=== PATIENT | male | born 1965 | race Hispanic/Latino ===

== ENCOUNTER 2018-07-02 17:00 | Emergency (ER) | payer OTHER ==
[2018-07-02 17:34] LABS: BASOPHILS % (AUTO) 1.5 % (0.0-5.0); HEMATOCRIT 46.7 % (42-54); LYMPHOCYTES % (AUTO) 22.8 % (21.0-51.0); MEAN CORPUSCULAR HEMOGLOBIN 27.6 pg (27.0-33.0); MEAN CORPUSCULAR HGB CONC 33.7 g/dL (32.0-36.0); MEAN CORPUSCULAR VOLUME 81.9 fL (79-99); MONOCYTES % (AUTO) 11.5 % (3.0-13.0); NEUTROPHILS % (AUTO) 61.2 % (40.0-77.0); NUCLEATED RED BLOOD CELLS 0.1 % (0.0-0.19); PLATELET COUNT (AUTO) 283 K/uL (130-400); RED CELL DISTRIBUTION WIDTH 13.4 % (11.0-15.5); WHITE BLOOD COUNT (AUTO) 11.6 K/uL (4.8-10.8)
[2018-07-02 17:44] LABS: POTASSIUM 3.9 mmol/L (3.5-5.1)
[2018-07-02 17:49] LABS: ALBUMIN 3.7 g/dL (3.5-5.0); BILIRUBIN,TOTAL 0.2 mg/dL (0.2-1.0); TOTAL PROTEIN, SERUM 6.9 g/dL (6.0-8.3)
[2018-07-02] MEDS ORDERED: METOPROLOL TARTRATE 1 MG/ML 5ML VIAL IV ONE (17:49)
[2018-07-02] MEDS ORDERED: METOPROLOL TARTRATE 25 MG TAB ONE (17:50)
[2018-07-02 17:57] LABS: BILIRUBIN,URINE Negative (NEGATIVE); COLOR,URINE Yellow (YELLOW); GLUCOSE, URINE (UA) Negative (NEGATIVE); KETONES,URINE Negative (NEGATIVE); LEUKOCYTE ESTERASE ,URINE Negative (NEGATIVE); NITRATE,URINE Negative (NEGATIVE); OCCULT BLOOD,URINE Negative (NEGATIVE); PROTEIN,URINE Negative (NEGATIVE); UROBILINOGEN,URINE 0.2 mg/dL (0.2-1.0)
[2018-07-02 17:58] LABS: APPEARANCE,URINE CLEAR (CLEAR)
== END 2018-07-02 18:42 | disposition home or self-care (01) ==
LOC: EDH 17:00
DX: I10 Essential (primary) hypertension (principal); R53.83 Other fatigue; Z87.891 Personal history of nicotine dependence; Z79.899 Other long term (current) drug therapy
CPT/HCPCS: 36415; 80053; 81003; 85025; 87804; 93005; J3490

== ENCOUNTER 2025-01-15 23:42 | Inpatient (IN) | payer BC, OTHER ==
[~2025-01-15] VITALS: Ht 165.1 cm; Wt 98.1 kg
--- NOTE | 2025-01-15 23:47 | NUR ---
UA CUP PROVIDED
--- NOTE | 2025-01-15 23:49 | NUR ---
UA COLLECTED AND SENT
--- NOTE | 2025-01-15 23:49 | ERN ---
ED Note History of Present Illness Stated Complaint: RT FLANK PAIN Chief Complaint: Flank Pain Time Seen by MD: 23:43 Time Seen by Midlevel: 23:43 Dictation: Mr. Castellano 59-year-old gentleman with history of hypertension, umbilical hernia, obesity, and kidney stones who presented to the emergency department this evening for evaluation of flank pain. He said he developed right flank pain with nausea and hematuria early this morning. He states pain initially at an 8/10 but he took it dose of Advil at 5:30 p.m. and now he has decreased to 5/10. He denies fever, chills, shortness of breath, cough, chest pain, palpitat ions, edema, abdominal pain, vomiting, hematemesis, constipation, diarrhea, melena, hematochezia,headache, dizziness, or focal weakness/paresthesia. He has a history of kidney stones; last episode two years ago. Urologist: None Allergies: Coded Allergies: No Known Drug Allergies (Verified Allergy, Unknown, 12/09/14) Emergency Care OPERA SINGER: None Past Medical History Surgical History: None PSYCH History: no pertinent psych hx Social History: Negative, Lives with family RN Note Reviewed/Agreed w/PFSH: Yes Review of System Dictation REVIEW OF SYSTEMS: CONSTITUTIONAL: Patient denies fevers, chills, sweats and weight changes. EYES: Patient denies any visual symptoms. EARS, NOSE, AND THROAT: No difficulties with hearing. No symptoms of rhinitis or sore throat. CARDIOVASCULAR: Patient denies chest pains, palpitations, orthopnea and parox ysmal nocturnal dyspnea. RESPIRATORY: No dyspnea on exertion, no wheezing or cough. GI: No nausea, vomiting, diarrhea, constipation, abdominal pain, hematochezia or melena. : No urinary hesitancy or dribbling. No nocturia.No abnormal urethral discharge. Reports history of kidney stones; last episode two years ago. Reports right flank pain 8/10 (5/10 following dose Advil) and frequent urination. Reports pink urine. Reports umbilical hernia; reducible. Nonpainful. MUSCULOSKELETAL: No myalgias or arthralgias. NEUROLOGIC: No chronic headaches, no seizures. Patient denies numbness, tingling or weakness. PSYCHIATRIC: Patient denies problems with mood disturbance. No problems with anxiety. ENDOCRINE: No excessive urination or excessive thirst. DERMATOLOGIC: Patient denies any rashes or skin changes. Initial Vital Sign VS Vital Signs Date Time Temp Pulse Resp B/P (MAP) Pulse Ox O2 Delivery O2 Flow Rate FiO2 01/15/25 23:43 97.9 69 20 143/83 97 Room Air 01/16/25 02:10 0 21 Physical Exam Dictation Vital signs: Reviewed. Afebrile Constitutional: No acute distress. Uncomfortable. Head/Face: Normocephalic, atraumatic. Eyes: Periorbital areas with no swelling, redness, or edema. Lids and lashes are normal. Conjunctival injection is absent. Sclera anicteric. Pupils equal, round, reactive to light. ENT: Pinnas intact and no signs of trauma or erythema. Ear canals clear and no discharge. TMs no erythema. No nasal discharge or bleeding noted. Oropharynx with no exudate, redness, swelling, masses, exudates, or evidence of obstruction. Uvula midline. Mucous membranes moist. Neck: Trachea midline, no masses palpated, and no cervical lymphadenopathy. No swelling. Supple, full range of motion. Chest/Axilla: No tenderness, no crepitus, no paradoxical movement, no retractions. Cardiovascular: Regular rate, regular rhythm, no murmur, no gallops. Symmetric pulses. No peripheral edema. Respiratory: Respirations even and unlabored. Lung sounds clear; no wheezes, rales or rhonchi. Room air SpO2 99% Gastrointestinal: Obese. No distention is appreciated. Bowel sounds are normal. No mass or organomegaly . There is no tenderness. No rebound. No rigidity. No voluntary or involuntary guarding. No Hinton's sign. Noted umbilical hernia; easily reducible. Nonpainful. : + CVA tenderness on right. Neurological: Normal speech, gross motor function intact, gross sensory function intact. No focal weakness/Paresthesia. Musculoskeletal/Extremities: All extremities have full range of motion, no pain or tenderness on palpation. Symmetric pulses. Integumentary: Intact. Skin is normal color, warm and dry. Cap refill less than 3 seconds. Results (Laboratory/Radiology) Laboratory/Radiology Laboratory Tests Test 01/15/25 00:00 01/16/25 00:08 Urine Color LIGHT-YELLOW (YELLOW) Urine Appearance CLEAR (CLEAR) Urine pH 5.0 (5.0-8.0) Urine Specific [place] 1.017 (1.001-1.031) Urine Protein 10 mg/dL (NEGATIVE) H Urine Glucose (UA) NEGATIVE mg/dL (NEGATIVE) Urine Ketones NEGATIVE mg/dL (NEGATIVE) Urine Occult Blood LARGE (NEGATIVE) H Urine Nitrate NEGATIVE (NEGATIVE) Urine Bilirubin NEGATIVE mg/dL (NEGATIVE) Urine Urobilinogen 0.2 mg/dL (0.2-1.0) Urine Leukocyte Esterase NEGATIVE [place]/uL Urine RBC TNTC /HPF (0-1) H Urine WBC 2-5 /HPF (0-1) H Urine Squamous Epithelial Cells RARE /HPF (0-2) Urine Bacteria None /HPF (None Seen) White Blood Count 18.8 K/uL (4.8-10.8) H Red Blood Count 5.52 MIL/uL (4.50-6.20) Hemoglobin 15.2 g/dL (14.0-18.0) Hematocrit 46.0 % (42-54) Mean Corpuscular Volume 83.3 fL (79-99) Mean Corpuscular Hemoglobin 27.5 pg (27.0-33.0) Mean Corpuscular Hemoglobin Concent 33.0 g/dL (32.0-36.0) Red Cell Distribution Width 13.5 % (11.0-15.5) Platelet Count 302 K/uL (130-400) Mean Platelet Volume 9.7 fL (7.5-10.5) Immature Granulocyte % (Auto) 0.5 % (0-1) Neutrophils (%) (Auto) 79.8 % (40.0-77.0) H Lymphocytes (%) (Auto) 9.2 % (21.0-51.0) L Monocytes (%) (Auto) 9.2 % (3.0-13.0) Eosinophils (%) (Auto) 0.9 % (0.0-8.0) Basophils (%) (Auto) 0.4 % (0.0-5.0) Neutrophils # (Auto) 15.0 K/uL (1.8-7.7) H Lymphocytes # (Auto) 1.7 K/uL (1.0-4.8) Monocytes # (Auto) 1.7 K/uL (0.1-1.0) H Eosinophils # (Auto) 0.17 K/uL (0.00-0.70) Basophils # (Auto) 0.07 K/uL (0.00-0.20) Absolute Immature Granulocyte (auto 0.09 K/uL (0-1) Nucleated Red Blood Cells 0.0 % (0.0-0.19) White Cell Morphology Comment See comments Sodium Level 137 mmol/L (136-145) Potassium Level 4.1 mmol/L (3.5-5.1) Chloride Level 101 mmol/L (101-111) Carbon Dioxide Level 24 mmol/L (21-32) Blood Urea Nitrogen 39 mg/dL (7-18) H Creatinine 2.1 mg/dL (0.5-1.3) H Glomerular Filtration Rate Calc 36 mL/min (>90) Random Glucose 102 mg/dL (70-105) Total Calcium 8.6 mg/dL (8.5-10.1) Total Bilirubin 0.8 mg/dL (0.2-1.0) Direct Bilirubin 0.1 mg/dL (0.0-0.3) Aspartate Amino Transf (AST/SGOT) 35 U/L (10-37) Alanine Aminotransferase (ALT/SGPT) 37 U/L (12-78) Alkaline Phosphatase 86 U/L (50-136) Total Protein 6.8 g/dL (6.0-8.3) Albumin 3.6 g/dL (3.5-5.0) Labs Reviewed?: Yes CT Scan Comment: v PATIENT: MARY CASTELLANO MR#: [id number] : 1965 SEX: M AGE: 59 LOCATION: [facility] ORDER [id number] STATUS: REG REPORT#: [id number] SERVICE [id number] REASON: right flank pain, hematuria, hx kidney stones ORDERING PHYSICIAN: CARLOS HILLIARD NP PROCEDURE: ABD PEL WO - CT ABDOMEN/PELVIS W/O CONTRAST EXAM: CT Abdomen and Pelvis without IV contrast. CLINICAL HISTORY: Pain in the right flank. Hematuria. TECHNIQUE: Thin collimated axial CT images of the abdomen and pelvis were obtained, with sagittal and coronal reformatted images also submitted. A CT scan is done according to ALARA (As Low As Reasonably Achievable). CONTRAST: None. COMPARISON: CT scan of the abdomen and pelvis. Dated 12/09/2014. FINDINGS: Unremarkable visualized lung parenchyma. There is no focal abnormality appreciated within the gallbladder, pancreas, spleen, or adrenals. Fatty liver. A 10 mm focus of increased density in the left lobe of the liver could suggest a hemangioma with focal fat sparing. This is a new finding. 3 mm calculus in the interpolar region and lower pole of the right kidney. Moderate right hydronephrosis. 3 mm calculus in the right upper and lower ureter. Punctate calculus in the interpolar region of the left kidney. The previously visualized cyst in the lower pole of the left kidney has reduced in size, now measuring 10 mm. There is no obvious bowel wall thickening. Bowel loops are normal in caliber without evidence of obstruction or ileus. Scattered colonic diverticulosis. Mild constipation. Medium-sized umbilical hernia containing omental fat through a defect measuring 2 cm. The appendix is unremarkable. There is no abnormality within the urinary bladder. Unremarkable reproductive organs. No lymphadenopathy. No free fluid. No pneumoperitoneum. No gross abnormality in the abdominal vessels. There is no acute osseous abnormality. Redemonstrated is grade 1 anterolisthesis of L5 over S1 by 5 mm with lysis of bilateral L5 pars interarticularis with further mild reduction in the L5-S1 intervertebral disc height. IMPRESSIONS: Obstructive calculus in the right upper and lower ureter, causing moderate right hydronephrosis. A new finding. Nonobstructive bilateral renal calculi. A new finding. Medium-sized umbilical hernia containing fat, a new finding. Other chronic findings are described. /[place] DICTATED BY: CARLOS JONES Jr., MD DATE: 01/16/25251 ELECTRONICALLY SIGNED BY: CARLOS JONES Jr., MD DATE: 01/16/25251 ED Course ED Course Orders Procedure Category Date Status Time Urinalysis Profile LAB 01/15/25 Complete 23:49 Cbc With Differential LAB 01/15/25 Complete 23:49 Basic Metabolic Panel LAB 01/15/25 Complete 23:49 Hepatic Function Panel LAB 01/15/25 Complete 23:49 Ondansetron Odt 4mg PHA 01/16/25 Complete Tab (Zofran 4mg Odt) 00:00 Hydrocodone/Apap PHA 01/16/25 Complete 5/325 (Milton 5/325mg) 00:00 Ct Abdomen/Pelvis W/O CT 01/15/25 Resulted Contrast 23:49 0.9%Nacl 1000ml (Ns PHA 01/16/25 Complete 1000ml) 01:00 Ceftriaxone 1g Vial PHA 01/16/25 Complete (Rocephine 1g Inj) 01:00 Current Medications Medications (Trade) Dose Ordered Sig/Trini Route PRN Reason Start Time Stop Time Status Last Admin Dose Admin Acetaminophen/ Hydrocodone Bitart (NORco 5/325MG) 1 tab ONCE ONCE PO 01/16/25 00:00 01/16/25 00:01 DC 01/16/25 01:31 Ceftriaxone Sodium (ROCEphine 1G INJ) 1 gm ONCE ONCE IVPB 01/16/25 01:00 01/16/25 01:01 DC 01/16/25 02:00 Ondansetron HCl (zoFRAN 4MG ODT) 4 mg ONCE ONCE SL 01/16/25 00:00 01/16/25 00:01 DC 01/16/25 01:30 Sodium Chloride 1,000 ml @ 0 mls/hr ONCE ONCE IV 01/16/25 01:00 01/16/25 01:01 DC 01/16/25 02:00 Vital Signs Date Time Temp Pulse Resp B/P (MAP) Pulse Ox O2 Delivery O2 Flow Rate FiO2 01/16/25 02:10 98.2 64 18 164/77 Room Air* 0 21 01/15/25 23:43 97.9 69 20 143/83 97 Room Air Presents with right flank pain/positive right CVA tenderness with nausea. No signs are stable afebrile; with room air SpO2 99%. Normotensive. Laboratory findings as noted below. WBCs 18.8, BUN/CR 39/2.1 and UA+ protein, blood and you WBCs 2-5; culture pending. CT scan of the abdomen and pelvis revealed obstructive calculus in the right upper and lower ureter causing moderate right hydronephrosis as well as nonobstructive bilateral renal calculi. There was a medium size umbilical hernia containing fat. While in the ED he received doses Zofran, Milton, Rocephin, and NS 1000 mL IV as bolus. Findings were discussed with RODNEY Muniz who accepts patient for admission to hospitalist group. Medical Decision Making MDM MDM: Differential diagnosis: Kidney stone, hydronephrosis, UTI, electrolyte derangement, SUJIT Rationale: Tests considered and ordered secondary to shared decision making include: labs, ECG and radiology Previous outside records reviewed: Old ER visits. Risk of complication and/or morbidity or mortality of patient management: None Medications-Per medication reconciliation Need for hospitalization: Patient does meet criteria for hospitalization. Need for emergency major/minor surgery: No There are no social concerns with this patient. Prescription drug management Prescriptions will include symptomatic care Patient's prior external medical records from other ER visits were reviewed by me as indicated. Prior testing and results from previous visits were reviewed. Prior tests were taken into account with medical decision making and resource utilization, independent historian/historians were used to obtain complete medical history. I independently interpreted the test that were performed, results were reviewed by me and considered findings on radiology if ordered. Medical management and examination interpretation discussions were had by me with other qualified healthcare professionals as indicated for the patient's care. DX & DISP Disposition: Inpatient Departure Impression: Primary Impression: Leukocytosis Additional Impressions: Hydronephrosis, right, Kidney stone, Dehydration, Umbilical hernia Condition: Stable Assign Patient to: Dr. Anuj Tran Referrals: VIRGINIA CHAWLA (PCP) CARLOS HILLIARD NP Jan 15, 2025 23:49
[2025-01-16 00:09] LABS: APPEARANCE,URINE CLEAR (CLEAR); GLUCOSE, URINE (UA) NEGATIVE (NEGATIVE); LEUKOCYTE ESTERASE ,URINE NEGATIVE Leu/uL (NEGATIVE); NITRATE,URINE NEGATIVE (NEGATIVE); OCCULT BLOOD,URINE LARGE (NEGATIVE)
[2025-01-16 00:10] LABS: ADD UA MICROSCOPIC YES
[2025-01-16 00:13] LABS: SQUAMOUS EPITHELIAL CELL,UR RARE /HPF (0-2)
--- NOTE | 2025-01-16 00:30 | NUR ---
WITH RADIOLOGY AT THIS TIME
[2025-01-16 00:33] LABS: IMMATURE GRANULOCYTE ABSOLUTE 0.09 K/uL (0-1); NUCLEATED RED BLOOD CELLS 0.0 % (0.0-0.19); PLATELET COUNT (AUTO) 302 K/uL (130-400); RED BLOOD CELL COUNT(AUTO) 5.52 MIL/uL (4.50-6.20); RED CELL DISTRIBUTION WIDTH 13.5 % (11.0-15.5); WHITE BLOOD COUNT (AUTO) 18.8 K/uL (4.8-10.8)
--- NOTE | 2025-01-16 00:38 | NUR ---
RETURNED FROM RADIOLOGY
[2025-01-16 00:43] LABS: CREATININE 2.1 mg/dL (0.5-1.3); GLOMERULAR FILTR. RATE CALC 36.0 mL/min (>90); GLUCOSE,RANDOM 102.0 mg/dL (70-105); SODIUM SERUM 137.0 mmol/L (136-145); UREA NITROGEN, BLOOD 39.0 mg/dL (7-18)
[2025-01-16 00:48] LABS: ASPARTATE AMINOTRANSFERASE 35.0 U/L (10-37); TOTAL PROTEIN, SERUM 6.8 g/dL (6.0-8.3)
[2025-01-16] MEDS: HYDROcodone/APAP 5/325 1 TAB TABLET PO ONE (01:31)
--- NOTE | 2025-01-16 01:53 | HMCIMG ---
EXAM: CT Abdomen and Pelvis without IV contrast. CLINICAL HISTORY: Pain in the right flank. Hematuria. TECHNIQUE: Thin collimated axial CT images of the abdomen and pelvis were obtained, with sagittal and coronal reformatted images also submitted. A CT scan is done according to ALARA (As Low As Reasonably Achievable). CONTRAST: None. COMPARISON: CT scan of the abdomen and pelvis. Dated 12/09/2014. FINDINGS: Unremarkable visualized lung parenchyma. There is no focal abnormality appreciated within the gallbladder, pancreas, spleen, or adrenals. Fatty liver. A 10 mm focus of increased density in the left lobe of the liver could suggest a hemangioma with focal fat sparing. This is a new finding. 3 mm calculus in the interpolar region and lower pole of the right kidney. Moderate right hydronephrosis. 3 mm calculus in the right upper and lower ureter. Punctate calculus in the interpolar region of the left kidney. The previously visualized cyst in the lower pole of the left kidney has reduced in size, now measuring 10 mm. There is no obvious bowel wall thickening. Bowel loops are normal in caliber without evidence of obstruction or ileus. Scattered colonic diverticulosis. Mild constipation. Medium-sized umbilical hernia containing omental fat through a defect measuring 2 cm. The appendix is unremarkable. There is no abnormality within the urinary bladder. Unremarkable reproductive organs. No lymphadenopathy. No free fluid. No pneumoperitoneum. No gross abnormality in the abdominal vessels. There is no acute osseous abnormality. Redemonstrated is grade 1 anterolisthesis of L5 over S1 by 5 mm with lysis of bilateral L5 pars interarticularis with further mild reduction in the L5-S1 intervertebral disc height. IMPRESSIONS: Obstructive calculus in the right upper and lower ureter, causing moderate right hydronephrosis. A new finding. Nonobstructive bilateral renal calculi. A new finding. Medium-sized umbilical hernia containing fat, a new finding. Other chronic findings are described. /[place]
[2025-01-16] MEDS: 0.9%NACL 1000ML 1,000 ML IV ONE (02:00)
--- NOTE | 2025-01-16 03:41 | HP ---
[facility] HISTORY AND PHYSICAL Date of Service: Jan 16, 2025 Time of Service: 03:41 PCP: Marlo Guzman HISTORY OF PRESENT ILLNESS: This is a 59 year old Vietnamese-speaking male with past medical history of hypertension and kidney stone who presented to the ED for complaints of right flank pain which started yesterday associated with nausea and hematuria.Patient reports having similar problem before.Upon ER arrival vital signs was 97.9, heart rate 69, blood pressure 143/83 saturation 97% on room air. Seen and examined patient in the ER awake alert and coherent, patient appears comfortable. Patient reports pain has subsided. Patient denies fever, abdominal pain, vomiting, chest pain, palpitation no shortness a breath. Labs: WBC 18 with negative left shift of neutrophils 79, hemoglobin 15, hematocrit 46, platelet count 302. BUN 39, creatinine 2.1 GFR 36 the rest of the chemistry result is normal. Urinalysis is significant for protein, large hematuria, RBC too numerous to count, WBC 2-5. A CT abdomen and pelvis without contrast was done and result revealed obstructive calculus in the right upper and lower ureter causing moderate right hydronephrosis. A new findings. Nonobstructive bilateral renal calculi a new finding. Medium sized umbilical hernia containing fat, a new finding. While in the ER patient received Zofran 4 mg IV, hydrocodone one tab p.o. 1 L NS bolus and Rocephin 1 g IV. We will admit patient for further medical management. REVIEW OF SYSTEMS CONSTITUTIONAL: Denies fevers, chills, or night sweats. No unintentional weight loss reported. NEUROLOGICAL: Denies headache, amaurosis fugax, motor weakness, sensory deficit, vertigo/spinning sensation, gait abnormalities, or tremors. ENT: No hearing loss, otalgia, otorrhea, rhinitis, rhinorrhea, hoarseness, or sore throat. CARDIOVASCULAR: Denies any exertional angina, dyspnea on exertion, orthopnea, paroxysmal nocturnal dyspnea, palpitations, life-threatening arrhythmias, claudication. PULMONARY: Denies any shortness of breath, cough, phlegm/sputum, hemoptysis, pleuritic chest pain. SLEEP: Denies morning headaches, daytime somnolence or napping. Denies difficulty falling asleep, staying asleep, waking from sleep. Denies knowledge of snoring. GASTROINTESTINAL: Positive nausea Denies any type of dysphagia to either liquids or solids. Denies vomiting, pyrosis, early satiety, abdominal pain, diarrhea, constipation, or changes in stool consistency or caliber. Denies coffee-ground emesis, hematemesis, hematochezia, or melanotic stools. GENITOURINARY: Complained of right flank pain Denies frequency, urgency, nocturia, hematuria or incontinence (Storage/Irritative symptoms.) Low urinary stream, straining to void, urinary intermittency or hesitancy, splitting of the voiding stream, terminal dribbling. ENDOCRINOLOGIC: Denies polyuria, polydipsia, polyphagia or heat/cold intolerances. HEMATOLOGIC: Denies thrombophilia/previous clots, or coagulopathy/bleeding disorders. ONCOLOGIC: Denies personal history of malignancy. DERMATOLOGIC: Denies rashes or pruritus. PSYCHIATRIC: Denies any suicidal or homicidal ideation. Denies hallucinations. PAST MEDICAL HISTORY: [ Hypertension and kidney stone ] PAST SURGICAL HISTORY: [ Patient denies] PAST SOCIAL HISTORY: [Patient lives with . Patient denies alcohol tobacco and recreational drug use ] FAMILY HISTORY: [ Noncontributory] Coded Allergies: No Known Drug Allergies (Verified Allergy, Unknown, 12/09/14) PHYSICAL EXAM GENERAL APPEARANCE: The patient is awake, alert, and oriented, in no acute cardiopulmonary distress. NEUROLOGICAL: Cranial nerves II-XII grossly intact. Motor is 5/5 in bilateral upper and lower extremities proximal to distal. No sensory deficits. HEENT: Face is symmetric. Pupils are equal and reactive. Extraocular movements are intact. NECK: Supple. No JVD. No thyromegaly. No submental, submandibular, pre- /postauricular, occipital or supraclavicular lymphadenopathy. CHEST: Normal chest expansion. No Telemetry. LUNGS: Absence of any rales, rhonchi or any wheezing. CARDIOVASCULAR: Regular. S1 and S2 normal. No appreciable rubs, murmurs or gallops. ABDOMEN: Soft, nontender, and nondistended. There is no rebound, voluntary guarding, or rigidity. : + CVAT Deferred. No Hay. EXTREMITIES: Non-edematous and not cyanotic. No clubbing. Good capillary refill. SKIN: No skin breakdown. Vital Sign (Last 24 Hours) 01/15/25 01/16/25 23:43 02:10 Temp 98.2 Pulse 64 Resp 18 B/P (MAP) 164/77 Pulse Ox 97 O2 Delivery Room Air* O2 Flow Rate 0 FiO2 21 LABS: Laboratory: Test 01/16/25 00:08 01/15/25 00:00 Range/Units White Blood Count 18.8 H 4.8-10.8 K/uL Red Blood Count 5.52 4.50-6.20 MIL/uL Hemoglobin 15.2 14.0-18.0 g/dL Hematocrit 46.0 42-54 % Mean Corpuscular Volume 83.3 79-99 fL Mean Corpuscular Hemoglobin 27.5 27.0-33.0 pg Mean Corpuscular Hemoglobin Concent 33.0 32.0-36.0 g/dL Red Cell Distribution Width 13.5 11.0-15.5 % Platelet Count 302 130-400 K/uL Mean Platelet Volume 9.7 7.5-10.5 fL Immature Granulocyte % (Auto) 0.5 0-1 % Neutrophils (%) (Auto) 79.8 H 40.0-77.0 % Lymphocytes (%) (Auto) 9.2 L 21.0-51.0 % Monocytes (%) (Auto) 9.2 3.0-13.0 % Eosinophils (%) (Auto) 0.9 0.0-8.0 % Basophils (%) (Auto) 0.4 0.0-5.0 % Neutrophils # (Auto) 15.0 H 1.8-7.7 K/uL Lymphocytes # (Auto) 1.7 1.0-4.8 K/uL Monocytes # (Auto) 1.7 H 0.1-1.0 K/uL Eosinophils # (Auto) 0.17 0.00-0.70 K/uL Basophils # (Auto) 0.07 0.00-0.20 K/uL Absolute Immature Granulocyte (auto 0.09 0-1 K/uL Nucleated Red Blood Cells 0.0 0.0-0.19 % White Cell Morphology Comment See comments Sodium Level 137 136-145 mmol/L Potassium Level 4.1 3.5-5.1 mmol/L Chloride Level 101 101-111 mmol/L Carbon Dioxide Level 24 21-32 mmol/L Blood Urea Nitrogen 39 H 7-18 mg/dL Creatinine 2.1 H 0.5-1.3 mg/dL Glomerular Filtration Rate Calc 36 >90 mL/min Random Glucose 102 70-105 mg/dL Total Calcium 8.6 8.5-10.1 mg/dL Total Bilirubin 0.8 0.2-1.0 mg/dL Direct Bilirubin 0.1 0.0-0.3 mg/dL Aspartate Amino Transf (AST/SGOT) 35 10-37 U/L Alanine Aminotransferase (ALT/SGPT) 37 12-78 U/L Alkaline Phosphatase 86 50-136 U/L Total Protein 6.8 6.0-8.3 g/dL Albumin 3.6 3.5-5.0 g/dL Urine Color LIGHT-YELLOW YELLOW Urine Appearance CLEAR CLEAR Urine pH 5.0 5.0-8.0 Urine Specific [place] 1.017 1.001-1.031 Urine Protein 10 H NEGATIVE mg/dL Urine Glucose (UA) NEGATIVE NEGATIVE mg/dL Urine Ketones NEGATIVE NEGATIVE mg/dL Urine Occult Blood LARGE H NEGATIVE Urine Nitrate NEGATIVE NEGATIVE Urine Bilirubin NEGATIVE NEGATIVE mg/dL Urine Urobilinogen 0.2 0.2-1.0 mg/dL Urine Leukocyte Esterase NEGATIVE NEGATIVE [place]/uL Urine RBC TNTC H 0-1 /HPF Urine WBC 2-5 H 0-1 /HPF Urine Squamous Epithelial Cells RARE 0-2 /HPF Urine Bacteria None None Seen /HPF DIAGNOSTICS / RADIOLOGY: [ ] ASSESSMENT: Right flank pain POA Right hydronephrosis per CT POA Right kidney stone per CT POA Umbilical hernia per CT POA Acute leukocytosis POA Acute kidney injury POA Suspected urinary tract infection POA Uncontrolled hypertension POA History of kidney stone POA PLAN: We will admit patient in medical surgical We will start on heart healthy diet We will continue Rocephin 1 g IV daily for empiric coverage We will start NS @ 100 ml / hr x2 bags and re evaluate We will start famotidine 20 mg p.o. daily for GI prophylaxis We will replace electrolytes as needed per protocol We will add prn medication for fever,pain,cough , nausea and vomiting We will reconcile home meds once medlist available We will seek Urology consultation We will request labs in am Further orders to follow depending on above results Case discussed with attending physician and came up with above treatment and plan of care. ADVANCED CARE PLANNING 1. Which of the following were discussed? Hospice Care - No Therapeutic options - Yes Advance Directives - No Other discussions - 2. Discussed with who? Patient 3. Voluntary nature of this service was explained to the patient? Yes 4. Amount of time spent - ____22 min___ 5. Reviewed by Physician? (if this service was performed by NPP) Yes Patient seen and examined by me. Agree with note by DYER ASSISTANT SEE ADDITIONAL ORDERS PER CHART DISCUSSED WITH NURSING STAFF RONNY MAZA [facility] Jan 16, 2025 03:41
[2025-01-16] MEDS: 0.9%NACL 1000ML 1,000 ML IV SCH (04:15)
--- NOTE | 2025-01-16 04:21 | NUR ---
REPORT GIVEN TO NURSE DURON PATIENT PENDING TO BE TRANSFERRED TO ROOM 322. WILL CONT TO MONITOR
[2025-01-16 04:30] VITALS: BP 168/84; PULSE 60; RESP 20; TEMP 97.6
[2025-01-16] MEDS: HYDROcodone/APAP 5/325 1 TAB TABLET PO PRN (05:35)
[2025-01-16] MEDS ORDERED: LOSA1TAB37 PO (06:44)
[2025-01-16 06:58] VITALS: BP 145/77; PULSE 60
[2025-01-16] MEDS: FAMOTIDINE 20MG TAB PO SCH (07:51)
[2025-01-16 07:56] LABS: IMMATURE GRANULOCYTE ABSOLUTE 0.10 K/uL (0-1); NUCLEATED RED BLOOD CELLS 0.0 % (0.0-0.19); PLATELET COUNT (AUTO) 279 K/uL (130-400); RED BLOOD CELL COUNT(AUTO) 5.32 MIL/uL (4.50-6.20); RED CELL DISTRIBUTION WIDTH 13.7 % (11.0-15.5); WHITE BLOOD COUNT (AUTO) 17.9 K/uL (4.8-10.8)
[2025-01-16 08:00] VITALS: BP 146/82; PULSE 60; RESP 18; TEMP 98.1; O2SAT 92
[2025-01-16 08:16] LABS: ASPARTATE AMINOTRANSFERASE 43.0 U/L (10-37); CREATININE 1.9 mg/dL (0.5-1.3); GLOMERULAR FILTR. RATE CALC 40.0 mL/min (>90); GLUCOSE,RANDOM 97.0 mg/dL (70-105); SODIUM SERUM 136.0 mmol/L (136-145); TOTAL PROTEIN, SERUM 6.1 g/dL (6.0-8.3); UREA NITROGEN, BLOOD 31.0 mg/dL (7-18)
[2025-01-16 11:50] VITALS: BP 166/88; PULSE 59; RESP 18; TEMP 98.1
[2025-01-16] MEDS: amLODIPine 2.5 MG TAB PO SCH (12:25)
--- NOTE | 2025-01-16 12:57 | NUR ---
DCP: INITIAL ASSESSMENT Patient lives with spouse, Sarah Castellano. He has no home services. Patient has BPM and nebulizer at home. He is able to complete ADLs independently and drives. 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 PCP is Dr. Thomas Sellers. Pharmacy is [facility] in [place]. Patient voiced no safety concerns regarding returning home and states he has no difficulty with housing or buying food. DCP is home. Addendum: 01/16/25 at 1300 by HELEN SPAIN SS Amended: Links added.
--- NOTE | 2025-01-16 16:39 | CONS ---
CONSULTATION NOTE Date of Service: Jan 16, 2025 Reason for Consultation: 3 mm obstructing right proximal ureteral calculus with symptoms of renal colic Requesting Physician: Anuj Tran MD HISTORY OF PRESENT ILLNESS: 59 year old Micronesian-speaking male with past medical history of hypertension and kidney stone who presented to the ED for complaints of right flank pain which started yesterday associated with nausea and hematuria.Patient reports having similar problem before.Upon ER arrival vital signs was 97.9, heart rate 69, blood pressure 143/83 saturation 97% on room air. Patient describes pain as a stabbing ache in the right flank, reminiscent of previous episodes, severity was a nine on a scale of 1-10, radiating into the right lower back, without any associated symptoms. Patient denies fever, abdominal pain, vomiting, chest pain, palpitation no shortness a breath. Labs: WBC 18 with negative left shift of neutrophils 79, hemoglobin 15, hematocrit 46, platelet count 302. BUN 39, creatinine 2.1 GFR 36 the rest of the chemistry result is normal. Urinalysis is significant for protein, large hematuria, RBC too numerous to count, WBC 2-5. A CT abdomen and pelvis without contrast was done and result revealed obstructive calculus in the right upper and lower ureter causing moderate right hydronephrosis. Nonobstructive bilateral renal calculi a new finding. Medium sized umbilical hernia containing fat, a new finding. While in the ER patient received Zofran 4 mg IV, hydrocodone one tab p.o. 1 L NS bolus and Rocephin 1 g IV. Patient admitted to the floor for supportive care with a urological consult REVIEW OF SYSTEMS CONSTITUTIONAL: Denies fever, chills, or fatigue. HEAD/FACE: No signs of trauma. EENT: Denies eye pain, blurred vision, double vision, or light sensitivity. RESPIRATORY: Denies shortness of breath, cough, wheezing CARDIOVASCULAR: Denies chest pain, palpitation, syncope GASTROINTESTINAL/ABDOMINAL: Denies abdominal pain, constipation, diarrhea, nausea or vomiting GENITOURINARY: Denies dysuria or hematuria. MUSCULOSKELETAL: Denies joint pain, tenderness, or trauma. INTEGUMENTARY: Denies rash or itchiness NEUROLOGICAL/PSYCH: Denies anxiety, depression, heat or cold intolerance. PAST MEDICAL HISTORY: Hypertension Nephrolithiasis PAST SURGICAL HISTORY: No previous surgeries PAST SOCIAL HISTORY: Denies ethanol, denies recreational drugs, denies smoking FAMILY HISTORY: Noncontributory to presenting complaint Coded Allergies: No Known Drug Allergies (Verified Allergy, Unknown, 12/09/14) PHYSICAL EXAM EYES: Anicteric. Pupils equal and reactive. HENT: No oral thrush seen, moist Oral mucosa NECK: Supple, no JVD or thyromegaly. LUNGS: Good air entry. No rales, no rhonchi. CARDIOVASCULAR: S1, S2 regular. No murmur heard. ABDOMEN: Soft, non tender, bowel sounds present, no organomegaly CENTRAL NERVOUS SYSTEM: Awake, alert, oriented x 3. No focal deficits. SKIN: No rashes, no swelling. LYMPHATICS: No peripheral lymphadenopathy MUSCULOSKELETAL: No joint swelling, erythema or tenderness. EXTREMITIES: No cyanosis or clubbing BACK: No deformity, no pressure ulcer. GENITOURINARY: Genitalia is normal Vital Sign (Last 24 Hours) 01/16/25 01/16/25 08:00 11:50 Temp 98.1 Pulse 59 Resp 18 B/P (MAP) 166/88 Pulse Ox 92 O2 Delivery Room Air O2 Flow Rate 0 FiO2 21 LABS: Laboratory: Test 01/16/25 07:31 01/16/25 00:08 01/15/25 00:00 Range/Units White Blood Count 17.9 H 4.8-10.8 K/uL Red Blood Count 5.32 4.50-6.20 MIL/uL Hemoglobin 14.7 14.0-18.0 g/dL Hematocrit 44.0 42-54 % Mean Corpuscular Volume 82.7 79-99 fL Mean Corpuscular Hemoglobin 27.6 27.0-33.0 pg Mean Corpuscular Hemoglobin Concent 33.4 32.0-36.0 g/dL Red Cell Distribution Width 13.7 11.0-15.5 % Platelet Count 279 130-400 K/uL Mean Platelet Volume 9.8 7.5-10.5 fL Immature Granulocyte % (Auto) 0.6 0-1 % Neutrophils (%) (Auto) 82.7 H 40.0-77.0 % Lymphocytes (%) (Auto) 7.5 L 21.0-51.0 % Monocytes (%) (Auto) 8.1 3.0-13.0 % Eosinophils (%) (Auto) 0.8 0.0-8.0 % Basophils (%) (Auto) 0.3 0.0-5.0 % Neutrophils # (Auto) 14.8 H 1.8-7.7 K/uL Lymphocytes # (Auto) 1.4 1.0-4.8 K/uL Monocytes # (Auto) 1.5 H 0.1-1.0 K/uL Eosinophils # (Auto) 0.14 0.00-0.70 K/uL Basophils # (Auto) 0.06 0.00-0.20 K/uL Absolute Immature Granulocyte (auto 0.10 0-1 K/uL Nucleated Red Blood Cells 0.0 0.0-0.19 % Sodium Level 136 136-145 mmol/L Potassium Level 3.8 3.5-5.1 mmol/L Chloride Level 102 101-111 mmol/L Carbon Dioxide Level 27 21-32 mmol/L Blood Urea Nitrogen 31 H 7-18 mg/dL Creatinine 1.9 H 0.5-1.3 mg/dL Glomerular Filtration Rate Calc 40 >90 mL/min Random Glucose 97 70-105 mg/dL Total Calcium 8.0 L 8.5-10.1 mg/dL Magnesium Level 1.90 1.80-2.40 mg/dL Total Bilirubin 0.9 0.2-1.0 mg/dL Aspartate Amino Transf (AST/SGOT) 43 H 10-37 U/L Alanine Aminotransferase (ALT/SGPT) 46 # 12-78 U/L Alkaline Phosphatase 74 50-136 U/L Total Protein 6.1 6.0-8.3 g/dL Albumin 3.2 L 3.5-5.0 g/dL White Cell Morphology Comment See comments Direct Bilirubin 0.1 0.0-0.3 mg/dL Urine Color LIGHT-YELLOW YELLOW Urine Appearance CLEAR CLEAR Urine pH 5.0 5.0-8.0 Urine Specific Levan 1.017 1.001-1.031 Urine Protein 10 H NEGATIVE mg/dL Urine Glucose (UA) NEGATIVE NEGATIVE mg/dL Urine Ketones NEGATIVE NEGATIVE mg/dL Urine Occult Blood LARGE H NEGATIVE Urine Nitrate NEGATIVE NEGATIVE Urine Bilirubin NEGATIVE NEGATIVE mg/dL Urine Urobilinogen 0.2 0.2-1.0 mg/dL Urine Leukocyte Esterase NEGATIVE NEGATIVE Tiara/uL Urine RBC TNTC H 0-1 /HPF Urine WBC 2-5 H 0-1 /HPF Urine Squamous Epithelial Cells RARE 0-2 /HPF Urine Bacteria None None Seen /HPF DIAGNOSTICS / RADIOLOGY: CT scan of the abdomen and pelvis without contrast shows a 3 mm nonobstructing right renal calculus and a 3 mm right proximal stone causing obstruction. ASSESSMENT: 59-year-old man with a an established history of nephrolithiasis presents with an obstructing 3 mm calculus in the right proximal ureter with symptoms of renal colic PLAN: 1. Patient will be managed conservatively. Pain control, fluid administration and Flomax for now. 2. The plan is to repeat CT imaging Saturday01/18/2025 and if the stone has not made any progress start looking into treatment options surgically. 3. Thank you for involving us in the care of this patient. 60 minutes spent to complete a consult, more than half of the time spent at bedside in counseling and coordination of care and addressing questions posed by patient, some time was spent discussing with members of his care team. The rest of the time was spent reviewing medical records. ENEDELIA FRANCO MD Jan 16, 2025 16:39
[2025-01-16 20:00] VITALS: BP 134/73; PULSE 67; RESP 20; TEMP 100.2; O2SAT 96
[2025-01-16 21:00] VITALS: TEMP 98.5
[2025-01-17] VITALS (7 sets, daily range): BP systolic 131–164; BP diastolic 68–81; PULSE 57–66; RESP 17–20; TEMP 97.5–99.5; O2SAT 94–98
[2025-01-17 05:56] LABS: NUCLEATED RED BLOOD CELLS 0.0 % (0.0-0.19); PLATELET COUNT (AUTO) 246.0 K/uL (130-400); RED BLOOD CELL COUNT(AUTO) 4.86 MIL/uL (4.50-6.20); RED CELL DISTRIBUTION WIDTH 13.6 % (11.0-15.5); WHITE BLOOD COUNT (AUTO) 15.3 K/uL (4.8-10.8)
[2025-01-17] MEDS: amLODIPine 2.5 MG TAB PO ONE (12:09)
--- NOTE | 2025-01-17 12:57 | PN ---
[facility] PROGRESS NOTE Date of Service: Jan 17, 2025 Time of Service: 12:54 SUBJECTIVE: 01/17 patient is seen and examined at bedside, case discussed with the RN, no acute events overnight, admitted due to right flank pain, A CT abdomen and pelvis without contrast was done and result revealed obstructive calculus in the right upper and lower ureter causing moderate right hydronephrosis. Nonobstructive bilateral renal calculi a new finding. Medium sized umbilical hernia containing fat, a new finding. Leukocytosis improving, WBC 15.3. Creatinine 1.8. Evaluated by urologist, continue IV fluids, pain control and Flomax,plan is to repeat CT imaging Saturday01/18/2025 and if the stone has not made any progress start looking into treatment options surgically. D iscussed with the patient, all questions answered, in agreement. REVIEW OF SYSTEMS CONSTITUTIONAL: Denies fevers, chills, or night sweats. No unintentional weight loss reported. NEUROLOGICAL: Denies headache, amaurosis fugax, motor weakness, sensory deficit, vertigo/spinning sensation, gait abnormalities, or tremors. ENT: No hearing loss, otalgia, otorrhea, rhinitis, rhinorrhea, hoarseness, or sore throat. CARDIOVASCULAR: Denies any exertional angina, dyspnea on exertion, orthopnea, paroxysmal nocturnal dyspnea, palpitations, life-threatening arrhythmias, claudication. PULMONARY: Denies any shortness of breath, cough, phlegm/sputum, hemoptysis, pleuritic chest pain. SLEEP: Denies morning headaches, daytime somnolence or napping. Denies difficulty falling asleep, staying asleep, waking from sleep. Denies knowledge of snoring. GASTROINTESTINAL: Positive nausea Denies any type of dysphagia to either liquids or solids. Denies vomiting, pyrosis, early satiety, abdominal pain, diarrhea, constipation, or changes in stool consistency or caliber. Denies coffee-ground emesis, hematemesis, hematochezia, or melanotic stools. GENITOURINARY: Complained of right flank pain Denies frequency, urgency, nocturia, hematuria or incontinence (Storage/Irritative symptoms.) Low urinary stream, straining to void, urinary intermittency or hesitancy, splitting of the voiding stream, terminal dribbling. ENDOCRINOLOGIC: Denies polyuria, polydipsia, polyphagia or heat/cold intolerances. HEMATOLOGIC: Denies thrombophilia/previous clots, or coagulopathy/bleeding disorders. ONCOLOGIC: Denies personal history of malignancy. DERMATOLOGIC: Denies rashes or pruritus. PSYCHIATRIC: Denies any suicidal or homicidal ideation. Denies hallucinations. PHYSICAL EXAM GENERAL APPEARANCE: The patient is awake, alert, and oriented, in no acute cardiopulmonary distress. NEUROLOGICAL: Cranial nerves II-XII grossly intact. Motor is 5/5 in bilateral upper and lower extremities proximal to distal. No sensory deficits. HEENT: Face is symmetric. Pupils are equal and reactive. Extraocular movements are intact. NECK: Supple. No JVD. No thyromegaly. No submental, submandibular, pre- /postauricular, occipital or supraclavicular lymphadenopathy. CHEST: Normal chest expansion. No Telemetry. LUNGS: Absence of any rales, rhonchi or any wheezing. CARDIOVASCULAR: Regular. S1 and S2 normal. No appreciable rubs, murmurs or gallops. ABDOMEN: Soft, nontender, and nondistended. There is no rebound, voluntary g uarding, or rigidity. : + CVAT Deferred. No Hay. EXTREMITIES: Non-edematous and not cyanotic. No clubbing. Good capillary refill. SKIN: No skin breakdown. Vital Signs (last 8hr) Date Time Temp Pulse Resp B/P (MAP) Pulse Ox O2 Delivery O2 Flow Rate FiO2 01/17/25 11:59 97.9 58 20 151/81 94 Room Air 01/17/25 08:00 97.5 57 18 149/71 94 Room Air 01/17/25 08:00 94 Room Air* 0 21 LABS: Laboratory: Test 01/17/25 05:28 01/16/25 07:31 01/16/25 00:08 Range/Units White Blood Count 15.3 H 4.8-10.8 K/uL Red Blood Count 4.86 4.50-6.20 MIL/uL Hemoglobin 13.3 L 14.0-18.0 g/dL Hematocrit 41.3 L 42-54 % Mean Corpuscular Volume 85.0 79-99 fL Mean Corpuscular Hemoglobin 27.4 27.0-33.0 pg Mean Corpuscular Hemoglobin Concent 32.2 32.0-36.0 g/dL Red Cell Distribution Width 13.6 11.0-15.5 % Platelet Count 246 130-400 K/uL Mean Platelet Volume 9.8 7.5-10.5 fL Nucleated Red Blood Cells 0.0 0.0-0.19 % Magnesium Level 1.90 1.80-2.40 mg/dL Immature Granulocyte % (Auto) 0.6 0-1 % Neutrophils (%) (Auto) 82.7 H 40.0-77.0 % Lymphocytes (%) (Auto) 7.5 L 21.0-51.0 % Monocytes (%) (Auto) 8.1 3.0-13.0 % Eosinophils (%) (Auto) 0.8 0.0-8.0 % Basophils (%) (Auto) 0.3 0.0-5.0 % Neutrophils # (Auto) 14.8 H 1.8-7.7 K/uL Lymphocytes # (Auto) 1.4 1.0-4.8 K/uL Monocytes # (Auto) 1.5 H 0.1-1.0 K/uL Eosinophils # (Auto) 0.14 0.00-0.70 K/uL Basophils # (Auto) 0.06 0.00-0.20 K/uL Absolute Immature Granulocyte (auto 0.10 0-1 K/uL Sodium Level 136 136-145 mmol/L Potassium Level 3.8 3.5-5.1 mmol/L Chloride Level 102 101-111 mmol/L Carbon Dioxide Level 27 21-32 mmol/L Blood Urea Nitrogen 31 H 7-18 mg/dL Creatinine 1.9 H 0.5-1.3 mg/dL Glomerular Filtration Rate Calc 40 >90 mL/min Random Glucose 97 70-105 mg/dL Total Calcium 8.0 L 8.5-10.1 mg/dL Total Bilirubin 0.9 0.2-1.0 mg/dL Aspartate Amino Transf (AST/SGOT) 43 H 10-37 U/L Alanine Aminotransferase (ALT/SGPT) 46 # 12-78 U/L Alkaline Phosphatase 74 50-136 U/L Total Protein 6.1 6.0-8.3 g/dL Albumin 3.2 L 3.5-5.0 g/dL White Cell Morphology Comment See comments Direct Bilirubin 0.1 0.0-0.3 mg/dL Current Medications Medications (Trade) Dose Ordered Sig/Trini Route PRN Reason Start Time Stop Time Status Last Admin Dose Admin Acetaminophen (TYLenol 325MG TAB) 650 mg Q4H PRN PO MILD PAIN (1-3) 01/16/25 04:00 02/15/25 03:59 Acetaminophen (TYLenol 325MG TAB) 650 mg Q6H PRN PO TEMPERATURE GREATER THAN 101.5 01/16/25 04:00 02/15/25 03:59 Acetaminophen/ Hydrocodone Bitart (NORco 5/325MG) 1 tab Q4H PRN PO MODERATE PAIN (4-6) 01/16/25 04:00 01/21/25 03:59 01/17/25 09:08 1 TAB Amlodipine Besylate (NorvASC 2.5MG TAB) 2.5 mg DAILY PO 01/16/25 12:00 01/17/25 11:10 DC 01/17/25 09:00 2.5 MG Amlodipine Besylate (NorvASC 5MG TAB) 5 mg DAILY PO 01/18/25 09:00 02/17/25 08:59 Ceftriaxone Sodium (ROCEphine 1G INJ) 1 gm DAILY IVPB 01/16/25 09:00 01/26/25 08:59 01/17/25 09:00 1 GM Famotidine (Pepcid 20mg Tab) 20 mg DAILY PO 01/16/25 09:00 02/15/25 08:59 01/17/25 09:00 20 MG Hydralazine HCl (APRESOLine 20MG INJ) 5 mg Q6H PRN IV ADMINISTER FOR SBP > 160 01/16/25 04:00 02/15/25 03:59 01/16/25 05:31 5 MG Hydromorphone HCl (DiLAUDid 0.5MG INJ) 0.2 mg Q4H PRN IVP SEVERE PAIN (7-10) 01/16/25 12:00 01/21/25 11:59 Ondansetron HCl (zoFRAN 4MG INJ) 4 mg Q6H PRN IV NAUSEA/VOMITING 01/16/25 04:00 02/15/25 03:59 Sodium Chloride 1,000 ml @ 100 mls/hr Q10H IV 01/16/25 04:00 02/15/25 03:59 01/16/25 14:29 100 MLS/HR Tamsulosin HCl (FloMAX) 0.4 mg HS PO 01/16/25 21:00 02/15/25 20:59 01/16/25 20:17 0.4 MG DIAGNOSTICS / RADIOLOGY: [ ] ASSESSMENT: Right flank pain POA Right hydronephrosis per CT POA Right kidney stone per CT POA Umbilical hernia per CT POA Acute leukocytosis POA Acute kidney injury POA Suspected urinary tract infection POA Uncontrolled hypertension POA History of kidney stone POA PLAN: patient is seen and examined at bedside, case discussed with the RN, no acute events overnight, admitted due to right flank pain, A CT abdomen and pelvis without contrast was done and result revealed obstructive calculus in the right upper and lower ureter causing moderate right hydronephrosis. Nonobstructive bilateral renal calculi a new finding. Medium sized umbilical hernia containing fat, a new finding. Leukocytosis improving, WBC 15.3. Creatinine 1.8. Evaluated by urologist, continue IV fluids, pain control and Flomax,plan is to repeat CT imaging Saturday01/18/2025 and if the stone has not made any progress start looking into treatment options surgically. Discussed with the patient, all questions answered, in agreement. NEURO: Minimize central acting medications as possible. Fall Precautions. Well lighted room through the day and minimize interruptions through the night to prevent acute delirium. PULMONARY: Supplemental 02 as needed BiPAP as necessary, for respiratory distress Titrate Fio2 to keep Spo2 > or = 90% DuoNebs and CPT as needed IS hourly while awake for pulmonary hygiene prn Out of bed to chair as tolerated Maintain aspiration precautions at all times CARDIOVASCULAR: Follow hemodynamics. Vital signs per facility protocol GI & NUTRITION: Continue nutritional support Aspirations precautions Prokinetic agents and laxatives as needed KIDNEYS & ELECTROLYTES: Strict monitoring of intake and output Daily weights Avoid nephrotoxic agents Monitor electrolytes and replace as needed Goal urine output of 30mL/hr or 0.5mL/kg/hr Medications to be dosed according to renal function. Avoid contrast if possible ENDOCRINE: Maintain blood glucose between 100-180 at all times. Insulin sliding scale for blood glucose management Hypoglycemia and hyperglycemia protocol in place INFECTIOUS DISEASE: Trend temperature, WBC and procalcitonin level Follow cultures, deescalate antibiotics as soon as possible. Panculture if new onset fever HEMATOLOGY & COAGULATION: Monitor H&H. Keep Hgb > 7 Transfuse 1 unit of PRBC for Hgb < 7 Transfuse 1 pack of platelets of platelets < 20, 000 Watch for any signs and symptoms of bleeding SKIN: Pressure ulcer prevention per facility protocol Specialty mattress as needed ORTHO/REHAB Continue PT/OT PRN: MEDICATIONS Tylenol 650 mg po every 4 hrs for fever zofran 4 mg IV every 6 hrs for n/v Hydralazine 5 mg IV every 4 hrs systolic pressure > 160 bowel regiment: lactulose 20 gm PO BID PRN constipation Supportive measures: Continue GI and DVT prophylaxis Disposition: Pending improvement in clinical condition All questions answered time spent: > 35 min ANASTASIA BRIZUELA MD Jan 17, 2025 12:57
[2025-01-17 13:33] LABS: ASPARTATE AMINOTRANSFERASE 95.0 U/L (10-37); CREATININE 1.8 mg/dL (0.5-1.3); GLOMERULAR FILTR. RATE CALC 43.0 mL/min (>90); GLUCOSE,RANDOM 93.0 mg/dL (70-105); SODIUM SERUM 134.0 mmol/L (136-145); TOTAL PROTEIN, SERUM 5.7 g/dL (6.0-8.3); UREA NITROGEN, BLOOD 27.0 mg/dL (7-18)
--- NOTE | 2025-01-17 14:00 | NUR ---
PATIENT DROPPED NORCO. GOT ANOTHER PILL.
--- NOTE | 2025-01-17 19:40 | PN ---
PROGRESS NOTE Date of Service: Jan 17, 2025 Time of Service: 19:38 SUBJECTIVE: Feeling much better but has not passed a stone. Trying to strain his urine. REVIEW OF SYSTEMS CONSTITUTIONAL: Denies fever, chills, or fatigue. HEAD/FACE: No signs of trauma. EENT: Denies eye pain, blurred vision, double vision, or light sensitivity. RESPIRATORY: Denies shortness of breath, cough, wheezing CARDIOVASCULAR: Denies chest pain, palpitation, syncope GASTROINTESTINAL/ABDOMINAL: Denies abdominal pain, constipation, diarrhea, nausea or vomiting GENITOURINARY: Denies dysuria or hematuria. MUSCULOSKELETAL: Denies joint pain, tenderness, or trauma. INTEGUMENTARY: Denies rash or itchiness NEUROLOGICAL/PSYCH: Denies anxiety, depression, heat or cold intolerance. PHYSICAL EXAM EYES: Anicteric. Pupils equal and reactive. HENT: No oral thrush seen, moist Oral mucosa NECK: Supple, no JVD or thyromegaly. LUNGS: Good air entry. No rales, no rhonchi. CARDIOVASCULAR: S1, S2 regular. No murmur heard. ABDOMEN: Soft, non tender, bowel sounds present, no organomegaly CENTRAL NERVOUS SYSTEM: Awake, alert, oriented x 3. No focal deficits. SKIN: No rashes, no swelling. LYMPHATICS: No peripheral lymphadenopathy MUSCULOSKELETAL: No joint swelling, erythema or tenderness. EXTREMITIES: No cyanosis or clubbing BACK: No deformity, no pressure ulcer. GENITOURINARY: Genitalia is normal Vital Signs (last 8hr) Date Time Temp Pulse Resp B/P (MAP) Pulse Ox O2 Delivery O2 Flow Rate FiO2 01/17/25 15:56 97.9 58 17 164/75 93 Room Air 01/17/25 11:59 97.9 58 20 151/81 94 Room Air LABS: Laboratory: Test 01/17/25 05:28 01/16/25 07:31 01/16/25 00:08 Range/Units White Blood Count 15.3 H 4.8-10.8 K/uL Red Blood Count 4.86 4.50-6.20 MIL/uL Hemoglobin 13.3 L 14.0-18.0 g/dL Hematocrit 41.3 L 42-54 % Mean Corpuscular Volume 85.0 79-99 fL Mean Corpuscular Hemoglobin 27.4 27.0-33.0 pg Mean Corpuscular Hemoglobin Concent 32.2 32.0-36.0 g/dL Red Cell Distribution Width 13.6 11.0-15.5 % Platelet Count 246 130-400 K/uL Mean Platelet Volume 9.8 7.5-10.5 fL Nucleated Red Blood Cells 0.0 0.0-0.19 % Sodium Level 134 L 136-145 mmol/L Potassium Level 3.6 3.5-5.1 mmol/L Chloride Level 101 101-111 mmol/L Carbon Dioxide Level 23 21-32 mmol/L Blood Urea Nitrogen 27 H 7-18 mg/dL Creatinine 1.8 H 0.5-1.3 mg/dL Glomerular Filtration Rate Calc 43 >90 mL/min Random Glucose 93 70-105 mg/dL Total Calcium 7.9 L 8.5-10.1 mg/dL Magnesium Level 1.90 1.80-2.40 mg/dL Total Bilirubin 1.1 #H 0.2-1.0 mg/dL Aspartate Amino Transf (AST/SGOT) 95 H 10-37 U/L Alanine Aminotransferase (ALT/SGPT) 153 #H 12-78 U/L Alkaline Phosphatase 85 50-136 U/L Total Protein 5.7 L 6.0-8.3 g/dL Albumin 2.9 L 3.5-5.0 g/dL Immature Granulocyte % (Auto) 0.6 0-1 % Neutrophils (%) (Auto) 82.7 H 40.0-77.0 % Lymphocytes (%) (Auto) 7.5 L 21.0-51.0 % Monocytes (%) (Auto) 8.1 3.0-13.0 % Eosinophils (%) (Auto) 0.8 0.0-8.0 % Basophils (%) (Auto) 0.3 0.0-5.0 % Neutrophils # (Auto) 14.8 H 1.8-7.7 K/uL Lymphocytes # (Auto) 1.4 1.0-4.8 K/uL Monocytes # (Auto) 1.5 H 0.1-1.0 K/uL Eosinophils # (Auto) 0.14 0.00-0.70 K/uL Basophils # (Auto) 0.06 0.00-0.20 K/uL Absolute Immature Granulocyte (auto 0.10 0-1 K/uL White Cell Morphology Comment See comments Direct Bilirubin 0.1 0.0-0.3 mg/dL DIAGNOSTICS / RADIOLOGY: CT scan of the abdomen and pelvis without contrast shows a 3 mm nonobstructing right renal calculus and a 3 mm right proximal stone causing obstruction. ASSESSMENT: 59-year-old man with a an established history of nephrolithiasis presents with an obstructing 3 mm calculus in the right proximal ureter with symptoms of renal colic PLAN: 1. Patient will be managed conservatively. Pain control, fluid administration and Flomax for now. 2. We will order a repeat CT imaging Saturday01/18/2025 and if the stone has not made any progress start looking into treatment options surgically. 3. Thank you for involving us in the care of this patient. 30 minutes spent to complete this visit more than half of the time spent in counseling and coordination of care and addressing questions posed by patient. The rest of the time was spent reviewing records. ENEDELIA FRANCO MD Jan 17, 2025 19:39
[2025-01-18] VITALS (7 sets, daily range): BP systolic 145–181; BP diastolic 63–86; PULSE 55–68; RESP 18–20; TEMP 97.1–98.2; O2SAT 97
[2025-01-18] MEDS: amLODIPine 5 MG TAB PO SCH (08:36)
--- NOTE | 2025-01-18 12:52 | PN ---
[facility] PROGRESS NOTE Date of Service: Jan 18, 2025 Time of Service: 12:[address] Valentin SUBJECTIVE: 01/17 patient is seen and examined at bedside, case discussed with the RN, no acute events overnight, admitted due to right flank pain, A CT abdomen and pelvis without contrast was done and result revealed obstructive calculus in the right upper and lower ureter causing moderate right hydronephrosis. Nonobstructive bilateral renal calculi a new finding. Medium sized umbilical hernia containing fat, a new finding. Leukocytosis improving, WBC 15.3. Creat inine 1.8. Evaluated by urologist, continue IV fluids, pain control and Flomax,plan is to repeat CT imaging Saturday morning 01/18/2025 and if the stone has not made any progress start looking into treatment options surgically. Discussed with the patient, all questions answered, in agreement. 01/18/25 patient was seen by nurse practitioner and physician during rounding in room 322. Patient was evaluated by the urologist and as per his recommendation patient will be managed conservatively at this moment. Pain controlled, fluid administration and Flomax for now. Repeat CT imaging abdomen/pelvis is pending as of now was performed but pending results. Patient stated he still was not able to pass the stone. Complains of the pain. We will wait for further recommendations of urologist. A.m. labs. REVIEW OF SYSTEMS CONSTITUTIONAL: Denies fevers, chills, or night sweats. No unintentional weight loss reported. NEUROLOGICAL: Denies headache, amaurosis fugax, motor weakness, sensory deficit, vertigo/spinning sensation, gait abnormalities, or tremors. ENT: No hearing loss, otalgia, otorrhea, rhinitis, rhinorrhea, hoarseness, or sore throat. CARDIOVASCULAR: Denies any exertional angina, dyspnea on exertion, orthopnea, paroxysmal nocturnal dyspnea, palpitations, life-threatening arrhythmias, claudication. PULMONARY: Denies any shortness of breath, cough, phlegm/sputum, hemoptysis, pleuritic chest pain. SLEEP: Denies morning headaches, daytime somnolence or napping. Denies difficulty falling asleep, staying asleep, waking from sleep. Denies knowledge of snoring. GASTROINTESTINAL: Positive nausea Denies any type of dysphagia to either liquids or solids. Denies vomiting, pyrosis, early satiety, abdominal pain, diarrhea, constipation, or changes in stool consistency or caliber. Denies coffee-ground emesis, hematemesis, hematochezia, or melanotic stools. GENITOURINARY: Complained of right flank pain Denies frequency, urgency, nocturia, hematuria or incontinence (Storage/Irritative symptoms.) Low urinary stream, straining to void, urinary intermittency or hesitancy, splitting of the voiding stream, terminal dribbling. ENDOCRINOLOGIC: Denies polyuria, polydipsia, polyphagia or heat/cold intolerances. HEMATOLOGIC: Denies thrombophilia/previous clots, or coagulopathy/bleeding disorders. ONCOLOGIC: Denies personal history of malignancy. DERMATOLOGIC: Denies rashes or pruritus. PSYCHIATRIC: Denies any suicidal or homicidal ideation. Denies hallucinations. PHYSICAL EXAM GENERAL APPEARANCE: The patient is awake, alert, and oriented, in no acute cardiopulmonary distress. NEUROLOGICAL: Cranial nerves II-XII grossly intact. Motor is 5/5 in bilateral upper and lower extremities proximal to distal. No sensory deficits. HEENT: Face is symmetric. Pupils are equal and reactive. Extraocular movements are intact. NECK: Supple. No JVD. No thyromegaly. No submental, submandibular, pre- /postauricular, occipital or supraclavicular lymphadenopathy. CHEST: Normal chest expansion. No Telemetry. LUNGS: Absence of any rales, rhonchi or any wheezing. CARDIOVASCULAR: Regular. S1 and S2 normal. No appreciable rubs, murmurs or gallops. ABDOMEN: Soft, nontender, and nondistended. There is no rebound, voluntary guarding, or rigidity. : + CVAT Deferred. No Hay. EXTREMITIES: Non-edematous and not cyanotic. No clubbing. Good capillary refill. SKIN: No skin breakdown. Vital Signs (last 8hr) Date Time Temp Pulse Resp B/P (MAP) Pulse Ox O2 Delivery O2 Flow Rate FiO2 01/18/25 08:00 97 Room Air* 0 21 01/18/25 08:00 97.5 62 20 159/75 97 Room Air 21 LABS: Laboratory: Test 01/17/25 05:28 Range/Units White Blood Count 15.3 H 4.8-10.8 K/uL Red Blood Count 4.86 4.50-6.20 MIL/uL Hemoglobin 13.3 L 14.0-18.0 g/dL Hematocrit 41.3 L 42-54 % Mean Corpuscular Volume 85.0 79-99 fL Mean Corpuscular Hemoglobin 27.4 27.0-33.0 pg Mean Corpuscular Hemoglobin Concent 32.2 32.0-36.0 g/dL Red Cell Distribution Width 13.6 11.0-15.5 % Platelet Count 246 130-400 K/uL Mean Platelet Volume 9.8 7.5-10.5 fL Nucleated Red Blood Cells 0.0 0.0-0.19 % Sodium Level 134 L 136-145 mmol/L Potassium Level 3.6 3.5-5.1 mmol/L Chloride Level 101 101-111 mmol/L Carbon Dioxide Level 23 21-32 mmol/L Blood Urea Nitrogen 27 H 7-18 mg/dL Creatinine 1.8 H 0.5-1.3 mg/dL Glomerular Filtration Rate Calc 43 >90 mL/min Random Glucose 93 70-105 mg/dL Total Calcium 7.9 L 8.5-10.1 mg/dL Magnesium Level 1.90 1.80-2.40 mg/dL Total Bilirubin 1.1 #H 0.2-1.0 mg/dL Aspartate Amino Transf (AST/SGOT) 95 H 10-37 U/L Alanine Aminotransferase (ALT/SGPT) 153 #H 12-78 U/L Alkaline Phosphatase 85 50-136 U/L Total Protein 5.7 L 6.0-8.3 g/dL Albumin 2.9 L 3.5-5.0 g/dL Current Medications Medications (Trade) Dose Ordered Sig/Trini Route PRN Reason Start Time Stop Time Status Last Admin Dose Admin Acetaminophen (TYLenol 325MG TAB) 650 mg Q4H PRN PO MILD PAIN (1-3) 01/16/25 04:00 02/15/25 03:59 Acetaminophen (TYLenol 325MG TAB) 650 mg Q6H PRN PO TEMPERATURE GREATER THAN 101.5 01/16/25 04:00 02/15/25 03:59 Acetaminophen/ Hydrocodone Bitart (NORco 5/325MG) 1 tab Q4H PRN PO MODERATE PAIN (4-6) 01/16/25 04:00 01/21/25 03:59 01/18/25 11:07 1 TAB Amlodipine Besylate (NorvASC 2.5MG TAB) 2.5 mg DAILY PO 01/16/25 12:00 01/17/25 11:10 DC 01/17/25 09:00 2.5 MG Amlodipine Besylate (NorvASC 5MG TAB) 5 mg DAILY PO 01/18/25 09:00 02/17/25 08:59 01/18/25 08:36 5 MG Ceftriaxone Sodium (ROCEphine 1G INJ) 1 gm DAILY IVPB 01/16/25 09:00 01/26/25 08:59 01/18/25 08:36 1 GM Famotidine (Pepcid 20mg Tab) 20 mg DAILY PO 01/16/25 09:00 02/15/25 08:59 01/18/25 08:36 20 MG Hydralazine HCl (APRESOLine 20MG INJ) 5 mg Q6H PRN IV ADMINISTER FOR SBP > 160 01/16/25 04:00 02/15/25 03:59 01/16/25 05:31 5 MG Hydromorphone HCl (DiLAUDid 0.5MG INJ) 0.2 mg Q4H PRN IVP SEVERE PAIN (7-10) 01/16/25 12:00 01/21/25 11:59 Ondansetron HCl (zoFRAN 4MG INJ) 4 mg Q6H PRN IV NAUSEA/VOMITING 01/16/25 04:00 02/15/25 03:59 Sodium Chloride 1,000 ml @ 100 mls/hr Q10H IV 01/16/25 04:00 02/15/25 03:59 01/18/25 05:09 100 MLS/HR Tamsulosin HCl (FloMAX) 0.4 mg HS PO 01/16/25 21:00 02/15/25 20:59 01/17/25 21:01 0.4 MG DIAGNOSTICS / RADIOLOGY: [ ] ASSESSMENT: Right flank pain POA Right hydronephrosis per CT POA Right kidney stone per CT POA Umbilical hernia per CT POA Acute leukocytosis POA Acute kidney injury POA Suspected urinary tract infection POA Uncontrolled hypertension POA History of kidney stone POA PLAN: Patient was evaluated by the urologist and as per his recommendation patient will be managed conservatively at this moment. Pain controlled, fluid administration and Flomax for now. Repeat CT imaging abdomen/pelvis is pending as of now was performed but pending results. Patient stated he still was not able to pass the stone. Complains of the pain. We will wait for further recommendations of urologist. NEURO: Minimize central acting medications as possible. Fall Precautions. Well lighted room through the day and minimize interruptions through the night to prevent acute delirium. PULMONARY: Supplemental 02 as needed BiPAP as necessary, for respiratory distress Titrate Fio2 to keep Spo2 > or = 90% DuoNebs and CPT as needed IS hourly while awake for pulmonary hygiene prn Out of bed to chair as tolerated Maintain aspiration precautions at all times CARDIOVASCULAR: Follow hemodynamics. Vital signs per facility protocol GI & NUTRITION: Continue nutritional support Aspirations precautions Prokinetic agents and laxatives as needed KIDNEYS & ELECTROLYTES: Strict monitoring of intake and output Daily weights Avoid nephrotoxic agents Monitor electrolytes and replace as needed Goal urine output of 30mL/hr or 0.5mL/kg/hr Medications to be dosed according to renal function. Avoid contrast if possible ENDOCRINE: Maintain blood glucose between 100-180 at all times. Insulin sliding scale for blood glucose management Hypoglycemia and hyperglycemia protocol in place INFECTIOUS DISEASE: Trend temperature, WBC and procalcitonin level Follow cultures, deescalate antibiotics as soon as possible. Panculture if new onset fever HEMATOLOGY & COAGULATION: Monitor H&H. Keep Hgb > 7 Transfuse 1 unit of PRBC for Hgb < 7 Transfuse 1 pack of platelets of platelets < 20, 000 Watch for any signs and symptoms of bleeding SKIN: Pressure ulcer prevention per facility protocol Specialty mattress as needed ORTHO/REHAB Continue PT/OT PRN: MEDICATIONS Tylenol 650 mg po every 4 hrs for fever zofran 4 mg IV every 6 hrs for n/v Hydralazine 5 mg IV every 4 hrs systolic pressure > 160 bowel regiment: lactulose 20 gm PO BID PRN constipation Supportive measures: Continue GI and DVT prophylaxis Disposition: Pending improvement in clinical condition All questions answered time spent: > 35 min ATTESTATION BY PHYSICIAN I have seen and examined the patient. I reviewed the documentation, medical decision making, and treatment plan as noted by the mid-level provider above. I agree with the findings and plan of care. ANASTASIA BRIZUELA MD, KATARZYNA B PUBLIC POLICY COORDINATOR Jan 18, 2025 12:52
--- NOTE | 2025-01-18 21:30 | NUR ---
MD ROUNDS VISITED WITH PATIENT. POC DISCUSSED. MD AWARE OF PASSING OF STONE. NO NEW ORDERS AT THIS TIME. PATIENT AWARE. RESP EVEN AND UNLABORED. NO SOB NOTED. ON ROOM AIR. VITALS STABLE. AFEBRILE. UP AD ANJEL. PENDING PASSING OF 2ND STONE. NO SIGNS OF DISTRESS NOTED UPON EXITING THE ROOM. CALL LIGHT WITHIN REACH. Addendum: 01/19/25 at 0215 by GRIS CAMACHO RN RN Amended: Links added.
--- NOTE | 2025-01-18 21:38 | PN ---
PROGRESS NOTE Date of Service: Jan 18, 2025 Time of Service: 21:35 SUBJECTIVE: Obtained a repeat CT imaging today which we reviewed. The good news is that the stones had made their way distally to was the right UVJ location. The bad news for the patient is that there were two stones back to back. By the time we were discussing with patient at bedside, he has already passed one of the stones. Currently pending to pass the other one which should be happening in the next 2- 3 hours. REVIEW OF SYSTEMS CONSTITUTIONAL: Denies fever, chills, or fatigue. HEAD/FACE: No signs of trauma. EENT: Denies eye pain, blurred vision, double vision, or light sensitivity. RESPIRATORY: Denies shortness of breath, cough, wheezing CARDIOVASCULAR: Denies chest pain, palpitation, syncope GASTROINTESTINAL/ABDOMINAL: Denies abdominal pain, constipation, diarrhea, nausea or vomiting GENITOURINARY: Denies dysuria or hematuria. MUSCULOSKELETAL: Denies joint pain, tenderness, or trauma. INTEGUMENTARY: Denies rash or itchiness NEUROLOGICAL/PSYCH: Denies anxiety, depression, heat or cold intolerance. PHYSICAL EXAM EYES: Anicteric. Pupils equal and reactive. HENT: No oral thrush seen, moist Oral mucosa NECK: Supple, no JVD or thyromegaly. LUNGS: Good air entry. No rales, no rhonchi. CARDIOVASCULAR: S1, S2 regular. No murmur heard. ABDOMEN: Soft, non tender, bowel sounds present, no organomegaly CENTRAL NERVOUS SYSTEM: Awake, alert, oriented x 3. No focal deficits. SKIN: No rashes, no swelling. LYMPHATICS: No peripheral lymphadenopathy MUSCULOSKELETAL: No joint swelling, erythema or tenderness. EXTREMITIES: No cyanosis or clubbing BACK: No deformity, no pressure ulcer. GENITOURINARY: Genitalia is normal Vital Signs (last 8hr) Date Time Temp Pulse Resp B/P (MAP) Pulse Ox O2 Delivery O2 Flow Rate FiO2 01/18/25 20:00 97.9 57 18 181/81 96 Room Air 01/18/25 16:00 97.2 56 19 158/76 97 Room Air 21 LABS: Laboratory: Test 01/17/25 05:28 Range/Units White Blood Count 15.3 H 4.8-10.8 K/uL Red Blood Count 4.86 4.50-6.20 MIL/uL Hemoglobin 13.3 L 14.0-18.0 g/dL Hematocrit 41.3 L 42-54 % Mean Corpuscular Volume 85.0 79-99 fL Mean Corpuscular Hemoglobin 27.4 27.0-33.0 pg Mean Corpuscular Hemoglobin Concent 32.2 32.0-36.0 g/dL Red Cell Distribution Width 13.6 11.0-15.5 % Platelet Count 246 130-400 K/uL Mean Platelet Volume 9.8 7.5-10.5 fL Nucleated Red Blood Cells 0.0 0.0-0.19 % Sodium Level 134 L 136-145 mmol/L Potassium Level 3.6 3.5-5.1 mmol/L Chloride Level 101 101-111 mmol/L Carbon Dioxide Level 23 21-32 mmol/L Blood Urea Nitrogen 27 H 7-18 mg/dL Creatinine 1.8 H 0.5-1.3 mg/dL Glomerular Filtration Rate Calc 43 >90 mL/min Random Glucose 93 70-105 mg/dL Total Calcium 7.9 L 8.5-10.1 mg/dL Magnesium Level 1.90 1.80-2.40 mg/dL Total Bilirubin 1.1 #H 0.2-1.0 mg/dL Aspartate Amino Transf (AST/SGOT) 95 H 10-37 U/L Alanine Aminotransferase (ALT/SGPT) 153 #H 12-78 U/L Alkaline Phosphatase 85 50-136 U/L Total Protein 5.7 L 6.0-8.3 g/dL Albumin 2.9 L 3.5-5.0 g/dL DIAGNOSTICS / RADIOLOGY: CT scan of the abdomen and pelvis without contrast shows a 3 mm nonobstructing right renal calculus and a 3 mm right proximal stone causing obstruction. A repeat CT scan abdomen and pelvis without contrast 01/18/2025 was reviewed. Instead of the previous3 mm stone that was seen on the initial CT scan, there were two stones tandemly obstructing patient 2 mm and 1 mm. Both stones in the right distal location in the vicinity of the right UVJ. ASSESSMENT: 59-year-old man with a an established history of nephrolithiasis presents with an obstructing 3 mm calculus in the right proximal ureter with symptoms of renal colic PLAN: 1. Patient has already passed the smaller stone, the leading stone. 2. In the next several hours we think he will be passing the 2nd stone. 3. Continue conservative management with tamsulosin, pain control and fluid administration 4. Once patient has passed both stones, we have cleared him for discharge from a urological standpoint. He can see us in the office in [place] in the next 4-6 weeks for routine follow up. 30 minutes spent to complete this consult, more than half of the time spent at bedside in counseling and coordination of care and addressing questions and concerns post by patient. Some time was spent discussing with members of his care team. The rest of the time was spent reviewing medical records. ENEDELIA FRANCO MD Jan 18, 2025 21:38
[2025-01-19 03:40] VITALS: BP 155/80; PULSE 56; RESP 18; TEMP 97.8
[2025-01-19 06:33] LABS: IMMATURE GRANULOCYTE ABSOLUTE 0.08 K/uL (0-1); NUCLEATED RED BLOOD CELLS 0.0 % (0.0-0.19); PLATELET COUNT (AUTO) 269 K/uL (130-400); RED BLOOD CELL COUNT(AUTO) 4.90 MIL/uL (4.50-6.20); RED CELL DISTRIBUTION WIDTH 13.4 % (11.0-15.5); WHITE BLOOD COUNT (AUTO) 11.8 K/uL (4.8-10.8)
[2025-01-19 06:46] LABS: ASPARTATE AMINOTRANSFERASE 283.0 U/L (10-37); CREATININE 1.6 mg/dL (0.5-1.3); GLOMERULAR FILTR. RATE CALC 50.0 mL/min (>90); GLUCOSE,RANDOM 89.0 mg/dL (70-105); SODIUM SERUM 136.0 mmol/L (136-145); TOTAL PROTEIN, SERUM 5.9 g/dL (6.0-8.3); UREA NITROGEN, BLOOD 22.0 mg/dL (7-18)
[2025-01-19 08:00] VITALS: BP 156/93; PULSE 56; RESP 20; TEMP 97.5; O2SAT 98
--- NOTE | 2025-01-19 09:39 | HMCIMG ---
EXAM: CT Abdomen and Pelvis without IV contrast CLINICAL HISTORY: Right ureteral calculus. Evaluate stone progression. TECHNIQUE: Axial computed tomography images of the abdomen and pelvis without intravenous contrast. CONTRAST: No IV contrast. COMPARISON: January 16, 2025. FINDINGS: LUNG BASES: The lung bases demonstrate bibasilar streaky atelectasis. No pleural effusions are seen. LIVER: Again, noted is hepatomegaly with marked fatty infiltration of the liver. There is a stable small 1.3 cm area of of focal fatty sparing in the segment 5. GALLBLADDER AND BILE DUCTS: The gallbladder appears within normal limits. No radiopaque gallstones are seen. No biliary ductal dilatation is evident. PANCREAS: Unremarkable. SPLEEN: Unremarkable. ADRENAL GLANDS: Unremarkable. KIDNEYS, URETERS, AND BLADDER: There is further caudal migration of two small right ureteric calculi measuring 3 mm approximately, now seen in the right distal ureter (axial images 125 and 131 of 174). There is mild right hydroureteronephrosis with right perinephric and periureteric fat stranding as seen previously. A few non-obstructing renal calculi are seen bilaterally, largest measuring 5.5 mm in the interpolar region of the right kidney. STOMACH AND BOWEL: Unremarkable appearance of the stomach and bowel. No evidence of bowel obstruction. No evidence suggesting enteritis or colitis. There are multiple distal colonic diverticuli without acute diverticulitis. APPENDIX: Unremarkable. PERITONEUM: No free fluid. No free air. LYMPH NODES: No lymphadenopathy is evident. REPRODUCTIVE: Unremarkable. VASCULATURE: The aorta and its branches demonstrate atheromatous calcifications without aneurysm. BONES: No aggressive appearing osseous lesion. No acute osseous pathology evident. There are par interarticularis defects at L5 bilaterally with minimal anterolisthesis of L5 over S1. SOFT TISSUE: There is a moderate sized (6.5 x 6 x 5.7cm) stable fat containing umbilical hernia. IMPRESSION: Further caudal migration of the previously seen 3mm right ureteric calculi, now seen in the right distal ureter beyond the iliac vessel crossing. Persistent mild right hydroureteronephrosis. A few non-obstructing renal calculi bilaterally. Stable finding of hepatomegaly with marked fatty infiltration of the liver. Recommend laboratory correlation. Colonic diverticulosis without acute diverticulitis. Moderate sized fat containing umbilical hernia. No bowel herniation or obstruction. /Hussein
[2025-01-19 12:00] VITALS: BP 151/79; PULSE 55; RESP 18; TEMP 97.7
--- NOTE | 2025-01-19 13:25 | PN ---
[facility] PROGRESS NOTE Date of Service: Jan 19, 2025 Time of Service: 13:21 SUBJECTIVE: 01/17 patient is seen and examined at bedside, case discussed with the RN, no acute events overnight, admitted due to right flank pain, A CT abdomen and pelvis without contrast was done and result revealed obstructive calculus in the right upper and lower ureter causing moderate right hydronephrosis. Nonobstructive bilateral renal calculi a new finding. Medium sized umbilical hernia containing fat, a new finding. Leukocytosis improving, WBC 15.3. Creatinine 1.8. Evaluated by urologist, continue IV fluids, pain control and Flomax,plan is to repeat CT imaging Saturday morning 01/18/2025 and if the stone has not made any progress start looking into treatment options surgically. D iscussed with the patient, all questions answered, in agreement. 01/18/25 patient was seen by nurse practitioner and physician during rounding in room 322. Patient was evaluated by the urologist and as per his recommendation patient will be managed conservatively at this moment. Pain controlled, fluid administration and Flomax for now. Repeat CT imaging abdomen/pelvis is pending as of now was performed but pending results. Patient stated he still was not able to pass the stone. Complains of the pain. We will wait for further recommendations of urologist. A.m. labs. 01/19 continues to improve. Patient has passed one stone pending to pass another stone. REVIEW OF SYSTEMS CONSTITUTIONAL: Denies fevers, chills, or night sweats. No unintentional weight loss reported. NEUROLOGICAL: Denies headache, amaurosis fugax, motor weakness, sensory deficit, vertigo/spinning sensation, gait abnormalities, or tremors. ENT: No hearing loss, otalgia, otorrhea, rhinitis, rhinorrhea, hoarseness, or sore throat. CARDIOVASCULAR: Denies any exertional angina, dyspnea on exertion, orthopnea, paroxysmal nocturnal dyspnea, palpitations, life-threatening arrhythmias, claudication. PULMONARY: Denies any shortness of breath, cough, phlegm/sputum, hemoptysis, pleuritic chest pain. SLEEP: Denies morning headaches, daytime somnolence or napping. Denies difficulty falling asleep, staying asleep, waking from sleep. Denies knowledge of snoring. GASTROINTESTINAL: Positive nausea Denies any type of dysphagia to either liquids or solids. Denies vomiting, pyrosis, early satiety, abdominal pain, diarrhea, constipation, or changes in stool consistency or caliber. Denies coffee-ground emesis, hematemesis, hematochezia, or melanotic stools. GENITOURINARY: Complained of right flank pain Denies frequency, urgency, nocturia, hematuria or incontinence (Storage/Irritative symptoms.) Low urinary stream, straining to void, urinary intermittency or hesitancy, splitting of the voiding stream, terminal dribbling. ENDOCRINOLOGIC: Denies polyuria, polydipsia, polyphagia or heat/cold intolerances. HEMATOLOGIC: Denies thrombophilia/previous clots, or coagulopathy/bleeding disorders. ONCOLOGIC: Denies personal history of malignancy. DERMATOLOGIC: Denies rashes or pruritus. PSYCHIATRIC: Denies any suicidal or homicidal ideation. Denies hallucinations. PHYSICAL EXAM GENERAL APPEARANCE: The patient is awake, alert, and oriented, in no acute cardiopulmonary distress. NEUROLOGICAL: Cranial nerves II-XII grossly intact. Motor is 5/5 in bilateral upper and lower extremities proximal to distal. No sensory deficits. HEENT: Face is symmetric. Pupils are equal and reactive. Extraocular movements are intact. NECK: Supple. No JVD. No thyromegaly. No submental, submandibular, pre-/postauricular, occipital or supraclavicular lymphadenopathy. CHEST: Normal chest expansion. No Telemetry. LUNGS: Absence of any rales, rhonchi or any wheezing. CARDIOVASCULAR: Regular. S1 and S2 normal. No appreciable rubs, murmurs or gallops. ABDOMEN: Soft, nontender, and nondistended. There is no rebound, voluntary guarding, or rigidity. : + CVAT Deferred. No Hay. EXTREMITIES: Non-edematous and not cyanotic. No clubbing. Good capillary refill. SKIN: No skin breakdown. Vital Signs (last 8hr) Date Time Temp Pulse Resp B/P (MAP) Pulse Ox O2 Delivery O2 Flow Rate FiO2 01/19/25 08:00 97.5 56 20 156/93 98 Room Air 21 LABS: Laboratory: Test 01/19/25 06:08 Range/Units White Blood Count 11.8 H 4.8-10.8 K/uL Red Blood Count 4.90 4.50-6.20 MIL/uL Hemoglobin 13.5 L 14.0-18.0 g/dL Hematocrit 40.6 L 42-54 % Mean Corpuscular Volume 82.9 79-99 fL Mean Corpuscular Hemoglobin 27.6 27.0-33.0 pg Mean Corpuscular Hemoglobin Concent 33.3 32.0-36.0 g/dL Red Cell Distribution Width 13.4 11.0-15.5 % Platelet Count 269 130-400 K/uL Mean Platelet Volume 10.0 7.5-10.5 fL Immature Granulocyte % (Auto) 0.7 0-1 % Neutrophils (%) (Auto) 76.2 40.0-77.0 % Lymphocytes (%) (Auto) 9.9 L 21.0-51.0 % Monocytes (%) (Auto) 11.1 3.0-13.0 % Eosinophils (%) (Auto) 1.4 0.0-8.0 % Basophils (%) (Auto) 0.7 0.0-5.0 % Neutrophils # (Auto) 9.0 H 1.8-7.7 K/uL Lymphocytes # (Auto) 1.2 1.0-4.8 K/uL Monocytes # (Auto) 1.3 H 0.1-1.0 K/uL Eosinophils # (Auto) 0.17 0.00-0.70 K/uL Basophils # (Auto) 0.08 0.00-0.20 K/uL Absolute Immature Granulocyte (auto 0.08 0-1 K/uL Nucleated Red Blood Cells 0.0 0.0-0.19 % Sodium Level 136 136-145 mmol/L Potassium Level 3.7 3.5-5.1 mmol/L Chloride Level 103 101-111 mmol/L Carbon Dioxide Level 25 21-32 mmol/L Blood Urea Nitrogen 22 H 7-18 mg/dL Creatinine 1.6 H 0.5-1.3 mg/dL Glomerular Filtration Rate Calc 50 >90 mL/min Random Glucose 89 70-105 mg/dL Total Calcium 8.4 L 8.5-10.1 mg/dL Magnesium Level 1.90 1.80-2.40 mg/dL Total Bilirubin 0.9 0.2-1.0 mg/dL Aspartate Amino Transf (AST/SGOT) 283 H 10-37 U/L Alanine Aminotransferase (ALT/SGPT) 432 H 12-78 U/L Alkaline Phosphatase 124 50-136 U/L Total Protein 5.9 L 6.0-8.3 g/dL Albumin 2.8 L 3.5-5.0 g/dL Current Medications Medications (Trade) Dose Ordered Sig/Trini Route PRN Reason Start Time Stop Time Status Last Admin Dose Admin Acetaminophen (TYLenol 325MG TAB) 650 mg Q4H PRN PO MILD PAIN (1-3) 01/16/25 04:00 02/15/25 03:59 Acetaminophen (TYLenol 325MG TAB) 650 mg Q6H PRN PO TEMPERATURE GREATER THAN 101.5 01/16/25 04:00 02/15/25 03:59 Acetaminophen/ Hydrocodone Bitart (NORco 5/325MG) 1 tab Q4H PRN PO MODERATE PAIN (4-6) 01/16/25 04:00 01/21/25 03:59 01/18/25 23:12 1 TAB Amlodipine Besylate (NorvASC 2.5MG TAB) 2.5 mg DAILY PO 01/16/25 12:00 01/17/25 11:10 DC 01/17/25 09:00 2.5 MG Amlodipine Besylate (NorvASC 5MG TAB) 5 mg DAILY PO 01/18/25 09:00 02/17/25 08:59 01/19/25 10:14 5 MG Ceftriaxone Sodium (ROCEphine 1G INJ) 1 gm DAILY IVPB 01/16/25 09:00 01/26/25 08:59 01/19/25 10:13 1 GM Famotidine (Pepcid 20mg Tab) 20 mg DAILY PO 01/16/25 09:00 02/15/25 08:59 01/19/25 10:14 20 MG Hydralazine HCl (APRESOLine 20MG INJ) 5 mg Q6H PRN IV ADMINISTER FOR SBP > 160 01/16/25 04:00 02/15/25 03:59 01/18/25 20:31 5 MG Hydromorphone HCl (DiLAUDid 0.5MG INJ) 0.2 mg Q4H PRN IVP SEVERE PAIN (7-10) 01/16/25 12:00 01/21/25 11:59 01/18/25 19:24 0.2 MG Ondansetron HCl (zoFRAN 4MG INJ) 4 mg Q6H PRN IV NAUSEA/VOMITING 01/16/25 04:00 02/15/25 03:59 Sodium Chloride 1,000 ml @ 100 mls/hr Q10H IV 01/16/25 04:00 02/15/25 03:59 01/19/25 04:37 100 MLS/HR Tamsulosin HCl (FloMAX) 0.4 mg HS PO 01/16/25 21:00 02/15/25 20:59 01/18/25 20:30 0.4 MG DIAGNOSTICS / RADIOLOGY: [ ] ASSESSMENT: Right flank pain POA Right hydronephrosis per CT POA Right kidney stone per CT POA Umbilical hernia per CT POA Acute leukocytosis POA Acute kidney injury POA Suspected urinary tract infection POA Uncontrolled hypertension POA History of kidney stone POA PLAN: Patient was evaluated by the urologist and as per his recommendation patient will be managed conservatively at this moment. Pain controlled, fluid administration and Flomax for now. The patient has passed both stones (pending Second stone) patient can be discharged home. NEURO: Minimize central acting medications as possible. Fall Precautions. Well lighted room through the day and minimize interruptions through the night to prevent acute delirium. Continue Triple phase pain management with Tylenol, [place] and IV Dilaudid PULMONARY: Supplemental 02 as needed BiPAP as necessary, for respiratory distress Titrate Fio2 to keep Spo2 > or = 90% DuoNebs and CPT as needed IS hourly while awake for pulmonary hygiene prn Out of bed to chair as tolerated Maintain aspiration precautions at all times CARDIOVASCULAR: Continue amlodipine Follow hemodynamics. Vital signs per facility protocol GI & NUTRITION: Continue nutritional support Aspirations precautions Prokinetic agents and laxatives as needed KIDNEYS & ELECTROLYTES: Continue NS at 100 mL/hour Strict monitoring of intake and output Daily weights Avoid nephrotoxic agents Monitor electrolytes and replace as needed Goal urine output of 30mL/hr or 0.5mL/kg/hr Medications to be dosed according to renal function. Avoid contrast if possible Follow up with Urology, appreciate assistance ENDOCRINE: Maintain blood glucose between 100-180 at all times. Insulin sliding scale for blood glucose management Hypoglycemia and hyperglycemia protocol in place INFECTIOUS DISEASE: Continue IV ceftriaxone empirically (white count is improving) Trend temperature, WBC and procalcitonin level Follow cultures, deescalate antibiotics as soon as possible. Panculture if new onset fever HEMATOLOGY & COAGULATION: Monitor H&H. Keep Hgb > 7 Transfuse 1 unit of PRBC for Hgb < 7 Transfuse 1 pack of platelets of platelets < 20, 000 Watch for any signs and symptoms of bleeding SKIN: Pressure ulcer prevention per facility protocol Specialty mattress as needed ORTHO/REHAB Continue PT/OT PRN: MEDICATIONS Tylenol 650 mg po every 4 hrs for fever zofran 4 mg IV every 6 hrs for n/v Hydralazine 5 mg IV every 4 hrs systolic pressure > 160 bowel regiment: lactulose 20 gm PO BID PRN constipation Supportive measures: Continue GI and DVT prophylaxis Disposition: Pending improvement in clinical condition All questions answered time spent: > 35 min CECILIO ALVAREZ IV, MD Jan 19, 2025 13:25
--- NOTE | 2025-01-19 14:02 | DS ---
Discharge Summary Hospital Course Summary: Patient was admitted due to nephrolithiasis with SUJIT. Urology was consulted in the decision was made to manage the patient medically. He was placed on IV fluids, tamsulosin and pain management. The patient's pain persisted and repeat CT scan demonstrated stones had descended into the ureter. The patient has subsequently passed both stones in his pain improved. White count downtrended while on empiric IV antibiotics. Although cultures were not drawn. The decision was made to discharge the patient to follow up with PCP and Neurology. Creatinine improved from 2.1 down to 1.6. Patient Admitting Representative(s): Urology Assessment/Plan: ASSESSMENT: Right flank pain POA Right hydronephrosis per CT POA Right kidney stone per CT POA Umbilical hernia per CT POA Acute leukocytosis POA Acute kidney injury POA Suspected urinary tract infection POA Uncontrolled hypertension POA History of kidney stone POA PLAN: Patient was evaluated by the urologist and as per his recommendation patient will be managed conservatively at this moment. Pain controlled, fluid administration and Flomax for now. The patient has passed both stones (pending Second stone) patient can be discharged home. NEURO: Minimize central acting medications as possible. Fall Precautions. Well lighted room through the day and minimize interruptions through the night to prevent acute delirium. Continue Triple phase pain management with Tylenol, [place] and IV Dilaudid PULMONARY: Supplemental 02 as needed BiPAP as necessary, for respiratory distress Titrate Fio2 to keep Spo2 > or = 90% DuoNebs and CPT as needed IS hourly while awake for pulmonary hygiene prn Out of bed to chair as tolerated Maintain aspiration precautions at all times CARDIOVASCULAR: Continue amlodipine Follow hemodynamics. Vital signs per facility protocol GI & NUTRITION: Continue nutritional support Aspirations precautions Prokinetic agents and laxatives as needed KIDNEYS & ELECTROLYTES: Continue NS at 100 mL/hour Strict monitoring of intake and output Daily weights Avoid nephrotoxic agents Monitor electrolytes and replace as needed Goal urine output of 30mL/hr or 0.5mL/kg/hr Medications to be dosed according to renal function. Avoid contrast if possible Follow up with Urology, appreciate assistance ENDOCRINE: Maintain blood glucose between 100-180 at all times. Insulin sliding scale for blood glucose management Hypoglycemia and hyperglycemia protocol in place INFECTIOUS DISEASE: Continue IV ceftriaxone empirically (white count is improving) Trend temperature, WBC and procalcitonin level Follow cultures, deescalate antibiotics as soon as possible. Panculture if new onset fever HEMATOLOGY & COAGULATION: Monitor H&H. Keep Hgb > 7 Transfuse 1 unit of PRBC for Hgb < 7 Transfuse 1 pack of platelets of platelets < 20, 000 Watch for any signs and symptoms of bleeding SKIN: Pressure ulcer prevention per facility protocol Specialty mattress as needed ORTHO/REHAB Continue PT/OT PRN: MEDICATIONS Tylenol 650 mg po every 4 hrs for fever zofran 4 mg IV every 6 hrs for n/v Hydralazine 5 mg IV every 4 hrs systolic pressure > 160 bowel regiment: lactulose 20 gm PO BID PRN constipation Supportive measures: Continue GI and DVT prophylaxis Disposition: Pending improvement in clinical condition All questions answered time spent: > 35 min Home Medications: Reported Medications Losartan/Hydrochlorothiazide (Losartan-Hctz 50-12.5 mg Tab) 50 Mg-12.5 Mg Tablet, 1 TAB PO BID 01/16/25 Time spent arranging discharge: 31-60 minutes CECILIO ALVAREZ IV, MD Jan 19, 2025 14:02
== END 2025-01-19 17:10 | disposition home or self-care (01) | DRG 690 ==
LOC: EDH 23:42 → EDHIP 01-16 03:49 → 3DH 01-16 04:30
PROVIDERS: ADMIT Internal Medicine; ATTEND Internal Medicine
DX: N13.6 Pyonephrosis (principal); E86.0 Dehydration; D72.829 Elevated white blood cell count, unspecified; E66.9 Obesity, unspecified; I10 Essential (primary) hypertension; K42.9 Umbilical hernia without obstruction or gangrene; Z87.442 Personal history of urinary calculi; Z68.36 Body mass index [BMI] 36.0-36.9, adult; N17.9 Acute kidney failure, unspecified
CPT/HCPCS: 36415; 74176; 80048; 80053; 80076; 81001; 83735; 85025; 85027; 99285; G0378; J0360; J0696; J1171; J7030